=== PATIENT | male | born 1990 | race Caucasian/White ===

== ENCOUNTER 2023-07-03 11:26 | Inpatient (IN) | payer OTHER ==
[~2023-07-03] VITALS: Ht 167.6 cm; Wt 74.0 kg
[2023-07-03] MEDS ORDERED: TRAM-559 PO (12:37)
[2023-07-03] MEDS ORDERED: ACETAMINOPHEN 500 MG TABLET PO ONE (14:45)
[2023-07-03] MEDS ORDERED: KETOROLAC TROMETHAMINE 30 MG/ML VIAL IM ONE (14:45)
[2023-07-03 15:17] LABS: EOSINOPHILS % (AUTO) 6.2 % (1.0-6.0); HEMATOCRIT 45.4 % (41-53); HEMOGLOBIN 15.1 g/dL (13.5-17.5); LYMPHOCYTES # (AUTO) 1.7 K/uL (1.0-4.8); LYMPHOCYTES % (AUTO) 36.9 % (22.0-44.0); MEAN CORPUSCULAR HGB CONC 33.1 G/dL (31.0-37.0); MEAN CORPUSCULAR VOLUME 91 fL (80-100); MONOCYTES # (AUTO) 0.3 K/uL (0.1-1.0); MONOCYTES % (AUTO) 7.2 % (2.0-9.0); NEUTROPHILS # (AUTO) 2.2 K/uL (1.8-7.7); NEUTROPHILS % (AUTO) 47.7 % (40.0-70.0); PLATELET COUNT (AUTO) 197 K/uL (150-450); RED BLOOD CELL COUNT(AUTO) 5.01 MIL/uL (4.50-5.90); RED CELL DISTRIBUTION WIDTH 13.9 % (11.5-14.5); WHITE BLOOD COUNT (AUTO) 4.6 K/uL (4.5-11.0)
[2023-07-03 15:26] LABS: ANION GAP 7 mmol/L (8-16); CALCIUM, TOTAL 9.2 mg/dL (8.8-10.5); CARBON DIOXIDE 29 mmol/L (22-29); CHLORIDE 102 mmol/L (98-107); CREATININE 0.82 mg/dL (0.60-1.30); GLOMERULAR FILTR. RATE CALC > 60 mL/min (>60); GLUCOSE,RANDOM 96 mg/dL (70-110); POTASSIUM 4.2 mmol/L (3.5-5.1); SODIUM SERUM 138 mmol/L (136-145); UREA NITROGEN, BLOOD 15 mg/dL (7-18)
[2023-07-03 15:32] LABS: ALANINE AMINOTRANSFERASE 69 U/L (12-78); ALBUMIN 3.9 g/dL (3.4-5.0); ALKALINE PHOSPHATASE 69 U/L (46-116); ASPARTATE AMINOTRANSFERASE 28 U/L (15-37); TOTAL PROTEIN, SERUM 7.4 g/dL (6.4-8.2)
[2023-07-03] MEDS ORDERED: LOPERAMIDE HCL 2 MG CAPSULE PO PRN (16:00)
[2023-07-03] MEDS ORDERED: METOCLOPRAMIDE HCL 5 MG/ML 2 ML VIAL IVP PRN (16:00)
[2023-07-03] MEDS ORDERED: SODIUM CHLORIDE 0.9% 1,000 ML IV ONE (16:00)
[2023-07-03] MEDS ORDERED: DICYCLOMINE HCL 10 MG CAPSULE PO PRN (16:00)
[2023-07-03] MEDS ORDERED: LORazepam 2 MG/ML VIAL IVP PRN (16:00)
[2023-07-03 20:04] VITALS: BP 143/78; PULSE 62; RESP 20; TEMP 98.2
[2023-07-03] MEDS ORDERED: TEMAZEPAM 15 MG CAPSULE PO SCH (21:00)
[2023-07-04 04:24] VITALS: BP 127/81; PULSE 67; RESP 18; TEMP 97.4
[2023-07-04 10:52] VITALS: BP 117/71; PULSE 61; RESP 18; TEMP 97.5
[2023-07-04 14:40] VITALS: BP 117/71; PULSE 61; RESP 16; TEMP 97.5; O2SAT 100
[2023-07-04] MEDS ORDERED: IBUPROFEN 600 MG TABLET PO PRN (14:45)
[2023-07-04] MEDS ORDERED: DICYCLOMINE HCL 10 MG CAPSULE PO PRN (14:45)
[2023-07-04] MEDS ORDERED: HydrOXYzine PAMOATE 50 MG CAPSULE PO PRN (14:45)
[2023-07-04] MEDS ORDERED: MAG HYDROX/AL HYDROX/SIMETH ES 30 ML SUSPENSION UDCUP PO PRN (14:45)
[2023-07-04] MEDS ORDERED: CloNIDine HCL 0.1 MG TABLET PO PRN (14:45)
[2023-07-04 20:10] VITALS: BP 145/59; PULSE 66; RESP 18; TEMP 98.6
[2023-07-05 04:35] VITALS: BP 115/80; PULSE 67; RESP 20; TEMP 97.5
[2023-07-05 08:01] VITALS: BP 126/84; PULSE 68; RESP 20; TEMP 97.8
[2023-07-05] MEDS ORDERED: DICY-1 PO (10:32)
[2023-07-05] MEDS ORDERED: HYDR50CA7 PO (10:37)
== END 2023-07-05 13:35 | DRG 897 ==
LOC: EMS 11:31 → 6S 16:05
PROVIDERS: ADMIT Internal Medicine; ATTEND Internal Medicine
DX: F11.93 Opioid use, unspecified with withdrawal (principal); F41.9 Anxiety disorder, unspecified
CPT/HCPCS: 80053; 85025; J1885